=== PATIENT | male | born 1950 | race Caucasian/White ===

== ENCOUNTER 2019-11-23 07:22 | Day surgery (SDC) | payer MEDICARE ==
[2019-11-21 16:24] LABS: BASOPHILS % (AUTO) 0.6 % (0.0-5.0); EOSINOPHILS % (AUTO) 2.3 % (0.0-8.0); HEMATOCRIT 42.8 % (42-54); MEAN CORPUSCULAR HEMOGLOBIN 28.9 pg (27.0-33.0); MEAN CORPUSCULAR HGB CONC 34.3 g/dL (32.0-36.0); MEAN CORPUSCULAR VOLUME 84.3 fL (79-99); MONOCYTES % (AUTO) 10.4 % (3.0-13.0); NEUTROPHILS % (AUTO) 64.4 % (40.0-77.0); PLATELET COUNT (AUTO) 207 K/uL (130-400); RED BLOOD CELL COUNT(AUTO) 5.08 MIL/uL (4.50-6.20); WHITE BLOOD COUNT (AUTO) 10.1 K/uL (4.8-10.8)
[2019-11-21 16:34] LABS: CREATININE 0.7 mg/dL (0.5-1.5); POTASSIUM 4.4 mmol/L (3.5-5.1)
[2019-11-21 16:43] VITALS: BP 119/74
[2019-11-23] VITALS (17 sets, daily range): BP systolic 104–124; BP diastolic 58–84
[2019-11-23] MEDS: CEFTRIAXONE SODIUM 1 GM IVP SCH ×2 (06:00→08:40)
[~2019-11-23 07:22] MED LIST: ASPI-555 PO; METF-446 PO; METO50TA18 PO; MULT-1192 PO; OMEG-55 PO; ROSU20TA31 PO; SITA100T12 PO; TAMS-1 PO
[2019-11-23] MEDS ORDERED: FENTANYL CITRATE PF 50 MCG/1 ML 2ML VIAL ONE (08:04)
[2019-11-23] MEDS ORDERED: PROPOFOL 10 MG/ML 20ML VIAL IV ONE (08:04)
[2019-11-23] MEDS ORDERED: LIDOCAINE PF 2% 5ML ABBOJECT ONE (08:04)
[2019-11-23] MEDS ORDERED: SODIUM CHLORIDE 0.9% 1000ML 1,000 ML IV ONE (08:14)
[2019-11-23] MEDS ORDERED: EPHEDRINE SULFATE 50 MG/ML AMPULE ONE (09:02)
[2019-11-23] MEDS ORDERED: OPIUM/BELLADONNA ALKALOIDS 1 EACH SUPP.RECT RC ONE (09:23)
[2019-11-23] MEDS ORDERED: MORPHINE SULFATE 4 MG/1ML SYG ONE (10:36)
[2019-11-23] MEDS ORDERED: PHENAZOPYRIDINE HCL 200 MG TABLET ONE (11:29)
== END 2019-11-23 12:40 | disposition home or self-care (01) ==
LOC: DAH 07:22
PROVIDERS: ATTEND Urology
DX: N40.1 Benign prostatic hyperplasia with lower urinary tract symptoms (principal); R33.8 Other retention of urine; E11.9 Type 2 diabetes mellitus without complications; I10 Essential (primary) hypertension; Z79.82 Long term (current) use of aspirin; Z79.899 Other long term (current) drug therapy; Z79.84 Long term (current) use of oral hypoglycemic drugs; Z98.890 Other specified postprocedural states; Z82.49 Family history of ischemic heart disease and other diseases of the circulatory system; Z83.3 Family history of diabetes mellitus
CPT/HCPCS: 36415; 52648; 80048; 82948 ×2; 85025; 88307; 93005; A4215; A4221; A4222; A4223; A4340; A4354; A4495; A4600; A4663; J0696; J2001; J2270; J2704; J3010; J3490; J7030; J7120